=== PATIENT | female | born 1980 | race Caucasian/White ===

== ENCOUNTER 2016-04-20 22:00 | Emergency (ER) | payer OTHER ==
[~2016-04-20 22:00] MED LIST: KLON0.5T; SOMA350T; VICO5TAB
[2016-04-20] MEDS ORDERED: dexameTHASONE 20 MG/5 ML VIAL (J1100) As Ordered ONE (22:46)
[2016-04-20] MEDS ORDERED: UNASYN 1.5 GM VIAL As Ordered ONE (22:46)
[2016-04-20] MEDS ORDERED: diphenhydrAMINE INJ 50MG/ML VIAL (J1200) As Ordered ONE (22:46)
--- NOTE | 2016-04-20 23:56 | EDDOCDS ---
Nurse's Notes [facility] Name: Nayla Doe Age: 36 yrs Sex: Female : 1980 Arrival Date: 04/20/2016 Time: 22:00 Bed 14 Private MD: Anaid Diagnosis: Bitten by cat;Allergy, unspecified Presentation: 04/20 22:09 Presenting complaint: Patient states: Bit by a cat 2 days ago on right thumb and jo3 knuckle. Swelling became significant and so pt squeezed thumb to try and relieve some of the pressure. Approximately 20 minutes later, pt became red and itchy all over. Onset: The symptoms/episode began/occurred acutely, 1 hour(s) ago. This patient has not experienced a previous allergic reaction. Anaphylaxis evaluation, the patient reports or I have noted the following symptoms which indicate a significant risk of anaphylaxis: urticaria. Adult Sepsis Screening: Adult Sepsis Screening: Patient's respiratory rate is less than 22. Systolic blood pressure is greater than 100. Patient has a qSOFA score of 0- Negative Sepsis Screen. Suicide/Homicide risk assessment- the patient denies having any suicidal and/or homicidal ideations and does not present with any other emotional, behavioral or mental health complaints. Status: The patient is a dependent. Transition of care: patient was not received from another setting of care. 22:09 Method Of Arrival: Walkin/Carried/Asstd jo3 22:09 Acuity: LISETH Level 3 jo3 Triage Assessment: 22:13 General: Appears uncomfortable, Behavior is appropriate for age, cooperative, pleasant. jo3 HIV screening NA for this visit Offered previously. Neurological: Level of Consciousness is awake, alert, Oriented to person, place, time. Respiratory: Airway is patent Respiratory effort is even, unlabored, Reports no respiratory complaints. Derm: Skin Skin is dry, Skin is red. 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 Antihistamine oral oral Unknown (Last dose: 04/20/2016 21:15) - PMHx: none; - PSHx: Cholecystectomy; ; Hysterectomy; Breast Reduction; - Social history: Smoking status: Patient states former smoker of tobacco. No barriers to communication noted, The patient speaks fluent Greenlandic, Speaks appropriately for age. - Family history: Not pertinent. - : The pt / caregiver states he / she is not on anticoagulants. Home medication list is obtained from the patient. - Exposure Risk Screening:: None identified. Screenin:00 Screening information is obtained from the patient. Fall risk: No risks identified. tm5 Assistance ADL's: requires no assistance with activities of daily living. Abuse/DV Screen: The patient / caregiver reports he/she is: not in a situation that causes fear, pain or injury. Nutritional screening: No deficits noted. Advance Directives: There is no active DNR order. home support is adequate. Assessment: 23:00 General: Appears in no apparent distress, Behavior is appropriate for age, cooperative. tm5 Pain: Denies pain. Neurological: Level of Consciousness is awake, alert, Oriented to person, place, time. Respiratory: Airway is patent Respiratory effort is even, unlabored, Breath sounds are clear bilaterally. Derm: Skin is pink, warm & dry. Injury Description: Abrasion Puncture sustained to left hand is superficial, was sustained 1 day ago. 23:53 Reassessment: Patient appears in no apparent distress at this time. Patient states tm5 feeling better. Patient states symptoms have improved. Vital Signs: 22:02 BP 161 / 78; Pulse 110; Resp 18; Temp 99.2; Pulse Ox 99% ; Weight 95.25 kg; Height 6 jlm ft. 0 in. (182.88 cm); 23:53 BP 148 / 72; Pulse 100; Resp 20; Temp 98.1(O); Pulse Ox 99% on R/A; Pain 0/10; tm5 22:02 Body Mass Index 28.48 (95.25 kg, 182.88 cm) [facility] Vitals: 22:02 Log In Time: April 20, 2016 at 22:02. [facility] 22:03 RN notified that patient meets Red Flag criteria. [facility] ED Course: 22:02 Patient visited by Clair Ware Unit Clerk. [facility] 22:02 Anaid is Private Physician. [facility] 22:02 Patient moved to Waiting [facility] 22:12 Triage Initiated jo3 22:14 Luzma Aranda,RN is Primary Nurse. mb9 22:14 Olivier Gamble DO is Attending Physician. cs11 22:14 Patient moved to 14 mb9 22:15 Patient visited by Olivier Gamble DO. cs11 22:58 Patient visited by Karely Dowling RN. tm5 22:59 Inserted saline lock: 20 gauge in left hand The patient tolerated the procedure well. tm5 23:02 [facility] Payment Agreement was scanned into [employer] and attached to record. kf3 23:03 Primary Nurse role handed off by Luzma Aranda,GRETCHEN jb5 23:11 Patient visited by Karely Dowling RN. tm5 23:14 [facility]. cs11 23:53 Patient visited by Karely Dowling RN. tm5 23:53 The patient / caregiver is instructed regarding the plan of care and ED course. tm5 23:53 Discontinued lock intact, bleeding controlled, pressure dressing applied, No tm5 redness/swelling at site. No procedures done that require assistance. Administered Medications: 22:59 Drug: diphenhydrAMINE 12.5 mg [diphenhydramine 50 mg/mL injection solution (0.25 mL)] tm5 Route: IVP; Site: left hand; 23:26 Follow up: Response: No Adverse Reaction tm5 22:59 Drug: Dexamethasone 10 mg [dexamethasone 4 mg/mL injection solution] Route: IV; Rate: tm5 bolus; Site: left hand; 23:26 Follow up: Response: No Adverse Reaction tm5 22:59 Drug: Ampicillin-Sulbactam Sodium 1.5 grams [ampicillin-sulbactam 1.5 gram solution for tm5 injection] Route: IVPB; Infused Over: 30 mins; Site: left hand; Order Results: There are currently no results for this order. Outcome: 23:21 Discharge ordered by Provider. cs11 23:53 Discharge Assessment: Patient awake, alert and oriented x 3. No cognitive and/or tm5 functional deficits noted. Patient verbalized understanding of disposition instructions. patient administered narcotics - no. The following High Risk Discharge criteria are identified: None. Discharged to home ambulatory, with significant other. Condition: good Condition: stable Condition: improved. Discharge instructions given to patient, Instructed on discharge instructions, follow up and referral plans. medication usage, Demonstrated understanding of instructions, medications, Pt was receptive of discharge instructions/ teaching. Prescriptions given X 1. No special radiology studies were completed. Property :Personal belongings accompany Pt. 23:55 Patient left the ED. tm5 Signatures: Jaja Way, COMMERCIAL LENDING ASSISTANT COMMERCIAL LENDING ASSISTANT jb5 Luzma Portillo,RN RN jo3 Sha Navarrete, Reg Reg kf3 Olivier Gamble, DO cs11 Clair Ware, Railroad Detective Unit m Salo Santana RN RN mb9 Karely Dowling,RN RN tm5 Corrections: (The following items were deleted from the chart) 22:14 22:09 Acuity: LISETH Level 4 jo3 jo3 MTDD
--- NOTE | 2016-04-20 23:56 | EDDOCDS ---
Physician Documentation [facility] Name: Nayla Doe Age: 36 yrs Sex: Female : 1980 Arrival Date: 04/20/2016 Time: 22:00 Bed 14 Private MD: Anaid Disposition: 04/20/16 23:21 Discharged to Home/Self Care. Impression: Bitten by cat, Allergy, unspecified. - Condition is Stable. - Prescriptions for Augmentin 500- 125 mg Oral Tablet - take 1 tablet by ORAL route every 8 hours for 10 days; 30 tablet. - Medication Reconciliation, Local Pharmacy Hours form. - Follow up: Ken Trimble [facility]; When: 1 - 2 days; Reason: Recheck today's complaints, Continuance of care. - Problem is new. - Symptoms have improved. Historical: - Allergies: Albuterol; tomatoes; - Home Meds: 1. Antihistamine oral oral Unknown (Last dose: 04/20/2016 21:15) - PMHx: none; - PSHx: Cholecystectomy; ; Hysterectomy; Breast Reduction; - Social history: Smoking status: Patient states former smoker of tobacco. No barriers to communication noted, The patient speaks fluent Macanese, Speaks appropriately for age. - Family history: Not pertinent. - : The pt / caregiver states he / she is not on anticoagulants. Home medication list is obtained from the patient. - Exposure Risk Screening:: None identified. 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 0 in. (182.88 cm); 23:53 BP 148 / 72; Pulse 100; Resp 20; Temp 98.1(O); Pulse Ox 99% on R/A; Pain 0/10; tm5 22:02 Body Mass Index 28.48 (95.25 kg, 182.88 cm) jlm MDM: 22:30 IV Saline Lock ordered. cs11 22:30 diphenhydrAMINE 12.5 mg IVP once ordered. cs11 22:30 Dexamethasone 10 mg IV at bolus once ordered. cs11 22:30 Ampicillin-Sulbactam Sodium 1.5 grams IVPB once over 30 mins; dilute in 50mL of NS or cs11 D5W ordered. 23:01 Financial registration complete. kf3 23:02 [facility] Payment Agreement was scanned into [employer] and attached to record. kf3 Administered Medications: 22:59 Drug: diphenhydrAMINE 12.5 mg [diphenhydramine 50 mg/mL injection solution (0.25 mL)] tm5 Route: IVP; Site: left hand; 23:26 Follow up: Response: No Adverse Reaction tm5 22:59 Drug: Dexamethasone 10 mg [dexamethasone 4 mg/mL injection solution] Route: IV; Rate: tm5 bolus; Site: left hand; 23:26 Follow up: Response: No Adverse Reaction tm5 22:59 Drug: Ampicillin-Sulbactam Sodium 1.5 grams [ampicillin-sulbactam 1.5 gram solution for tm5 injection] Route: IVPB; Infused Over: 30 mins; Site: left hand; Signatures: Luzma PortilloRN RN jo3 Sha Navarrete, Reg Reg kf3 Olivier Gamble DO DO cs11 Karely Dowling RN RN tm5 The chart was reviewed and I authenticate all verbal orders and agree with the evaluation and treatment provided.Attachments: 23:02 [facility] Payment Agreement kf3 MTDD
--- NOTE | 2016-04-23 00:56 | EDDOCDS ---
Physician Documentation [facility] Name: Nayla Doe Age: 36 yrs Sex: Female : 1980 Arrival Date: 04/20/2016 Time: 22:00 Bed 14 Private MD: Anaid Disposition: 04/20/16 23:21 Discharged to Home/Self Care. Impression: Bitten by cat, Allergy, unspecified. - Condition is Stable. - Prescriptions for Augmentin 500- 125 mg Oral Tablet - take 1 tablet by ORAL route every 8 hours for 10 days; 30 tablet. - Medication Reconciliation, Local Pharmacy Hours form. - Follow up: Ken Trimble [facility]; When: 1 - 2 days; Reason: Recheck today's complaints, Continuance of care. - Problem is new. - Symptoms have improved. Historical: - Allergies: Albuterol; tomatoes; - Home Meds: 1. Antihistamine oral oral Unknown (Last dose: 04/20/2016 21:15) - PMHx: none; - PSHx: Cholecystectomy; ; Hysterectomy; Breast Reduction; - Social history: Smoking status: Patient states former smoker of tobacco. No barriers to communication noted, The patient speaks fluent Cuban, Speaks appropriately for age. - Family history: Not pertinent. - : The pt / caregiver states he / she is not on anticoagulants. Home medication list is obtained from the patient. - Exposure Risk Screening:: None identified. 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 0 in. (182.88 cm); 23:53 BP 148 / 72; Pulse 100; Resp 20; Temp 98.1(O); Pulse Ox 99% on R/A; Pain 0/10; tm5 22:02 Body Mass Index 28.48 (95.25 kg, 182.88 cm) jlm MDM: 22:30 IV Saline Lock ordered. cs11 22:30 diphenhydrAMINE 12.5 mg IVP once ordered. cs11 22:30 Dexamethasone 10 mg IV at bolus once ordered. cs11 22:30 Ampicillin-Sulbactam Sodium 1.5 grams IVPB once over 30 mins; dilute in 50mL of NS or cs11 D5W ordered. 23:01 Financial registration complete. kf3 : [facility] Payment Agreement was scanned into [employer] and attached to record. kf04/21 08:58 T-Sheet-- Draft Copy was scanned into [employer] and attached to record. se Administered Medications: 04/20 22:59 Drug: diphenhydrAMINE 12.5 mg [diphenhydramine 50 mg/mL injection solution (0.25 mL)] tm5 Route: IVP; Site: left hand; 23:26 Follow up: Response: No Adverse Reaction tm5 22:59 Drug: Dexamethasone 10 mg [dexamethasone 4 mg/mL injection solution] Route: IV; Rate: tm5 bolus; Site: left hand; 23:26 Follow up: Response: No Adverse Reaction tm5 22:59 Drug: Ampicillin-Sulbactam Sodium 1.5 grams [ampicillin-sulbactam 1.5 gram solution for tm5 injection] Route: IVPB; Infused Over: 30 mins; Site: left hand; Signatures: Luzma Portillo,RN RN jo3 Sha Navarrete, Reg Reg kf3 Olivier Gamble, DO cs11 Pattie Sanchez Tonya,RN RN tm5 The chart was reviewed and I authenticate all verbal orders and agree with the evaluation and treatment provided.Attachments: : [facility] Payment Agreement kf04/21 08:58 T-Sheet-- Draft Copy [facility] Chart Complete MTDD
--- NOTE | 2016-04-23 00:56 | EDDOCDS ---
Physician Documentation [facility] Name: Nayla Doe Age: 36 yrs Sex: Female : 1980 Arrival Date: 04/20/2016 Time: 22:00 Bed 14 Private MD: Anaid Disposition: 04/20/16 23:21 Discharged to Home/Self Care. Impression: Bitten by cat, Allergy, unspecified. - Condition is Stable. - Prescriptions for Augmentin 500- 125 mg Oral Tablet - take 1 tablet by ORAL route every 8 hours for 10 days; 30 tablet. - Medication Reconciliation, Local Pharmacy Hours form. - Follow up: Ken Trimble [facility]; When: 1 - 2 days; Reason: Recheck today's complaints, Continuance of care. - Problem is new. - Symptoms have improved. Historical: - Allergies: Albuterol; tomatoes; - Home Meds: 1. Antihistamine oral oral Unknown (Last dose: 04/20/2016 21:15) - PMHx: none; - PSHx: Cholecystectomy; ; Hysterectomy; Breast Reduction; - Social history: Smoking status: Patient states former smoker of tobacco. No barriers to communication noted, The patient speaks fluent Barbadian, Speaks appropriately for age. - Family history: Not pertinent. - : The pt / caregiver states he / she is not on anticoagulants. Home medication list is obtained from the patient. - Exposure Risk Screening:: None identified. 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 0 in. (182.88 cm); 23:53 BP 148 / 72; Pulse 100; Resp 20; Temp 98.1(O); Pulse Ox 99% on R/A; Pain 0/10; tm5 22:02 Body Mass Index 28.48 (95.25 kg, 182.88 cm) jlm MDM: 22:30 IV Saline Lock ordered. cs11 22:30 diphenhydrAMINE 12.5 mg IVP once ordered. cs11 22:30 Dexamethasone 10 mg IV at bolus once ordered. cs11 22:30 Ampicillin-Sulbactam Sodium 1.5 grams IVPB once over 30 mins; dilute in 50mL of NS or cs11 D5W ordered. 23:01 Financial registration complete. kf3 : [facility] Payment Agreement was scanned into [employer] and attached to record. kf04/21 08:58 T-Sheet-- Draft Copy was scanned into [employer] and attached to record. se Administered Medications: 04/20 22:59 Drug: diphenhydrAMINE 12.5 mg [diphenhydramine 50 mg/mL injection solution (0.25 mL)] tm5 Route: IVP; Site: left hand; 23:26 Follow up: Response: No Adverse Reaction tm5 22:59 Drug: Dexamethasone 10 mg [dexamethasone 4 mg/mL injection solution] Route: IV; Rate: tm5 bolus; Site: left hand; 23:26 Follow up: Response: No Adverse Reaction tm5 22:59 Drug: Ampicillin-Sulbactam Sodium 1.5 grams [ampicillin-sulbactam 1.5 gram solution for tm5 injection] Route: IVPB; Infused Over: 30 mins; Site: left hand; Signatures: Luzma Portillo,RN RN jo3 Sha Navarrete, Reg Reg kf3 Olivier Gamble, DO cs11 Pattie Sanchez Tonya,RN RN tm5 The chart was reviewed and I authenticate all verbal orders and agree with the evaluation and treatment provided.Attachments: : [facility] Payment Agreement kf04/21 08:58 T-Sheet-- Draft Copy [facility] Chart Complete MTDD
--- NOTE | 2016-04-23 00:56 | EDDOCDS ---
Nurse's Notes [facility] Name: Nayla Doe Age: 36 yrs Sex: Female : 1980 Arrival Date: 04/20/2016 Time: 22:00 Bed 14 Private MD: Anaid Diagnosis: Bitten by cat;Allergy, unspecified Presentation: 04/20 22:09 Presenting complaint: Patient states: Bit by a cat 2 days ago on right thumb and jo3 knuckle. Swelling became significant and so pt squeezed thumb to try and relieve some of the pressure. Approximately 20 minutes later, pt became red and itchy all over. Onset: The symptoms/episode began/occurred acutely, 1 hour(s) ago. This patient has not experienced a previous allergic reaction. Anaphylaxis evaluation, the patient reports or I have noted the following symptoms which indicate a significant risk of anaphylaxis: urticaria. Adult Sepsis Screening: Adult Sepsis Screening: Patient's respiratory rate is less than 22. Systolic blood pressure is greater than 100. Patient has a qSOFA score of 0- Negative Sepsis Screen. Suicide/Homicide risk assessment- the patient denies having any suicidal and/or homicidal ideations and does not present with any other emotional, behavioral or mental health complaints. Status: The patient is a dependent. Transition of care: patient was not received from another setting of care. 22:09 Method Of Arrival: Walkin/Carried/Asstd jo3 22:09 Acuity: LISETH Level 3 jo3 Triage Assessment: 22:13 General: Appears uncomfortable, Behavior is appropriate for age, cooperative, pleasant. jo3 HIV screening NA for this visit Offered previously. Neurological: Level of Consciousness is awake, alert, Oriented to person, place, time. Respiratory: Airway is patent Respiratory effort is even, unlabored, Reports no respiratory complaints. Derm: Skin Skin is dry, Skin is red. 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 Antihistamine oral oral Unknown (Last dose: 04/20/2016 21:15) - PMHx: none; - PSHx: Cholecystectomy; ; Hysterectomy; Breast Reduction; - Social history: Smoking status: Patient states former smoker of tobacco. No barriers to communication noted, The patient speaks fluent Bengali, Speaks appropriately for age. - Family history: Not pertinent. - : The pt / caregiver states he / she is not on anticoagulants. Home medication list is obtained from the patient. - Exposure Risk Screening:: None identified. Screenin:00 Screening information is obtained from the patient. Fall risk: No risks identified. tm5 Assistance ADL's: requires no assistance with activities of daily living. Abuse/DV Screen: The patient / caregiver reports he/she is: not in a situation that causes fear, pain or injury. Nutritional screening: No deficits noted. Advance Directives: There is no active DNR order. home support is adequate. Assessment: 23:00 General: Appears in no apparent distress, Behavior is appropriate for age, cooperative. tm5 Pain: Denies pain. Neurological: Level of Consciousness is awake, alert, Oriented to person, place, time. Respiratory: Airway is patent Respiratory effort is even, unlabored, Breath sounds are clear bilaterally. Derm: Skin is pink, warm & dry. Injury Description: Abrasion Puncture sustained to left hand is superficial, was sustained 1 day ago. 23:53 Reassessment: Patient appears in no apparent distress at this time. Patient states tm5 feeling better. Patient states symptoms have improved. Vital Signs: 22:02 BP 161 / 78; Pulse 110; Resp 18; Temp 99.2; Pulse Ox 99% ; Weight 95.25 kg; Height 6 jlm ft. 0 in. (182.88 cm); 23:53 BP 148 / 72; Pulse 100; Resp 20; Temp 98.1(O); Pulse Ox 99% on R/A; Pain 0/10; tm5 22:02 Body Mass Index 28.48 (95.25 kg, 182.88 cm) [facility] Vitals: 22:02 Log In Time: April 20, 2016 at 22:02. [facility] 22:03 RN notified that patient meets Red Flag criteria. [facility] ED Course: 22:02 Patient visited by Clair Ware Unit Clerk. [facility] 22:02 Anaid is Private Physician. [facility] 22:02 Patient moved to Waiting [facility] 22:12 Triage Initiated jo3 22:14 Luzma Aranda,RN is Primary Nurse. mb9 22:14 Olivier Gamble DO is Attending Physician. cs11 22:14 Patient moved to 14 mb9 22:15 Patient visited by Olivier Gamble DO. cs11 22:58 Patient visited by Karely Dowling,GRETCHEN. tm5 22:59 Inserted saline lock: 20 gauge in left hand The patient tolerated the procedure well. tm5 23:02 [facility] Payment Agreement was scanned into [employer] and attached to record. kf3 23:03 Primary Nurse role handed off by Luzma Aranda,GRETCHEN jb5 23:11 Patient visited by Karely Dowling RN. tm5 23:14 [facility]. cs11 23:53 Patient visited by Karely Dowling RN. tm5 23:53 The patient / caregiver is instructed regarding the plan of care and ED course. tm5 23:53 Discontinued lock intact, bleeding controlled, pressure dressing applied, No tm5 redness/swelling at site. No procedures done that require assistance. 04/21 08:58 T-Sheet-- Draft Copy was scanned into Fin[employer] and attached to record. [facility] Administered Medications: 04/20 22:59 Drug: diphenhydrAMINE 12.5 mg [diphenhydramine 50 mg/mL injection solution (0.25 mL)] tm5 Route: IVP; Site: left hand; 23:26 Follow up: Response: No Adverse Reaction tm5 22:59 Drug: Dexamethasone 10 mg [dexamethasone 4 mg/mL injection solution] Route: IV; Rate: tm5 bolus; Site: left hand; 23:26 Follow up: Response: No Adverse Reaction tm5 22:59 Drug: Ampicillin-Sulbactam Sodium 1.5 grams [ampicillin-sulbactam 1.5 gram solution for tm5 injection] Route: IVPB; Infused Over: 30 mins; Site: left hand; Order Results: There are currently no results for this order. Outcome: 23:21 Discharge ordered by Provider. cs11 23:53 Discharge Assessment: Patient awake, alert and oriented x 3. No cognitive and/or tm5 functional deficits noted. Patient verbalized understanding of disposition instructions. patient administered narcotics - no. The following High Risk Discharge criteria are identified: None. Discharged to home ambulatory, with significant other. Condition: good Condition: stable Condition: improved. Discharge instructions given to patient, Instructed on discharge instructions, follow up and referral plans. medication usage, Demonstrated understanding of instructions, medications, Pt was receptive of discharge instructions/ teaching. Prescriptions given X 1. No special radiology studies were completed. Property :Personal belongings accompany Pt. 23:55 Patient left the ED. tm5 Signatures: Jaja Way, ADAM SURFACE WATER TECHNICIAN jb5 Luzma Portillo,RN RN jo3 Sha Navarrete, Reg Reg kf3 Olivier Gamble, DO cs11 Clair Ware, Recyclable Materials Collector Unit [facility] Salo SantanaRN RN 9 Pattie Sanchez Tonya, RN RN tm5 Corrections: (The following items were deleted from the chart) 22:14 22:09 Acuity: LISETH Level 4 jo3 jo3 Chart Complete MTDD
== END 2016-04-20 23:55 | disposition home or self-care (01) ==
LOC: M ED 22:00
DX: S61.451A Open bite of right hand, initial encounter (principal); W55.01XA Bitten by cat, initial encounter; Y92.89 Other specified places as the place of occurrence of the external cause; Y93.89 Activity, other specified; Y99.8 Other external cause status; J30.81 Allergic rhinitis due to animal (cat) (dog) hair and dander; Z88.8 Allergy status to other drugs, medicaments and biological substances; Z91.018 Allergy to other foods; Z87.891 Personal history of nicotine dependence
CPT/HCPCS: 96374; 96375; 99283; J1100; J1200

== ENCOUNTER → 2016-07-17 | Outpatient (CLI) | payer OTHER ==
[2016-07-17 12:42] LABS: BASO # 0.1 K/mm3 (0.0-0.2); BASO % 0.9 % (0.0-1.0); EOS # 0.2 K/mm3 (0.0-0.50); EOS % 2.3 % (0.0-3.0); LARGE UNSTAINED CELL # 0.2 K/mm3 (0.0-0.4); LARGE UNSTAINED CELL % 2.4 % (0.0-4.0); LYMPH % 27.6 % (24.0-44.0); MEAN CORPUSCULAR HEMOGLOBIN 32.6 pg (27.0-33.0); MEAN CORPUSCULAR HGB CONC 34.2 g/dl (32.0-36.5); MEAN CORPUSCULAR VOLUME 95.4 fl (80.0-96.0); MONO # 0.4 K/mm3 (0.0-0.8); MONO % 5.6 % (0.0-5.0); NEUTROPHILS # 4.5 K/mm3 (1.8-7.7); NEUTROPHILS % 61.3 % (36.0-66.0); PLATELET COUNT, AUTOMATED 255 k/mm3 (150-450); RED CELL DISTRIBUTION WIDTH 12.3 % (11.5-14.5); WHITE BLOOD COUNT 7.3 K/mm3 (4.0-10.0)
[2016-07-17 13:10] LABS: ALBUMIN 3.9 GM/DL (3.2-5.2); ALBUMIN/GLOBULIN RATIO 1.34 (1.00-1.93); ALKALINE PHOSPHATASE 46 U/L (45-117); ALT/SGPT 30 U/L (12-78); ANION GAP 6 MEQ/L (8-16); AST/SGOT 14 U/L (15-37); BILIRUBIN,TOTAL 0.4 MG/DL (0.2-1.0); BLOOD UREA NITROGEN 10 MG/DL (7-18); CALCIUM LEVEL 8.4 MG/DL (8.5-10.1); CARBON DIOXIDE LEVEL 28 MEQ/L (21-32); CHLORIDE LEVEL 106 MEQ/L (98-107); CREATININE FOR GFR 0.77 MG/DL (0.55-1.02); GLOMERULAR FILTRATION RATE > 60.0 (>60); GLUCOSE, FASTING 87 MG/DL (70-105); SODIUM LEVEL 140 MEQ/L (136-145); TOTAL PROTEIN 6.8 GM/DL (6.4-8.2)
== END ==
LOC: M LAB 12:18
PROVIDERS: ATTEND Internal Medicine Gastroenterology
DX: R12 Heartburn (principal); R19.7 Diarrhea, unspecified

== ENCOUNTER → 2016-07-25 | Outpatient (CLI) | payer OTHER ==
[~2016-07-25] MED LIST changes: +MULT1TAB8 PO
--- NOTE | 2016-07-25 10:40 | REP ---
NUCLEAR GASTRIC EMPTYING SCAN: Following the oral administration of 1.04 millicuries technetium 99m sulfur colloid in two scrambled eggs in 6 ounces of water. Multiple images of the upper abdomen are performed in the anterior and posterior projections for 90 minutes. The gastric activity is measured. The gastric emptying time is calculated. At the end of 90 minutes 41% of the ingested activity has emptied from the stomach. T-1/2 is calculated to be 112 minutes. The normal t-1/2 is 90 minutes and therefore, gastric emptying is slightly delayed. IMPRESSION: Slightly delayed gastric emptying. Signed by Martell Henley MD 07/26/2016 07:03 P
== END ==
LOC: M RAD 08:19
PROVIDERS: ATTEND Internal Medicine Gastroenterology
DX: K31.84 Gastroparesis (principal)

== ENCOUNTER → 2016-07-30 | Outpatient (CLI) | payer OTHER ==
[~2016-07-30] VITALS: Ht 182.9 cm; Wt 97.5 kg
[~2016-07-30] MED LIST changes: +LIDOCAINE 2% INJ 100 MG/5 ML SDV (FOR ANES.) As Ordered ONE; +NS 1,000 ML IV ONE; +PROPOFOL 200 MG/20 ML VIAL As Ordered ONE
--- NOTE | 2016-07-30 15:15 | ROOR ---
Patient Name: Nayla Doe Procedure Date: 07/30/2016 3:05 PM Date of : 1980 Age: 36 Room: [facility] Gender: Female Note Status: Finalized Procedure: Upper GI endoscopy Indications: Heartburn, Gastroparesis, Nausea Providers: Brock HURT MD Referring MD: Gabriella ORTIZ MD Requesting Provider: Medicines: Monitored Anesthesia Care Complications: No immediate complications. Procedure: Pre-Anesthesia Assessment: - The heart rate, respiratory rate, oxygen saturations, blood pressure, adequacy of pulmonary ventilation, and response to care were monitored throughout the procedure. The Endoscope was introduced through the mouth, and advanced to the second part of duodenum. The upper GI endoscopy was accomplished without difficulty. The patient tolerated the procedure well. Findings: The esophagus was normal. The stomach was normal. The examined duodenum was normal. Bilious fluid was found in the entire examined stomach. Impression: - Normal esophagus. - Normal stomach. - Normal examined duodenum. - Bilious gastric fluid. - No specimens collected. Recommendation: - Observe patient's clinical course. - Use sucralfate tablets 1 gram 3-4 times a day. Script sent to your pharmacy - Gastroparesis diet: - Eat smaller, more frequent meals throughout the day. - Low fat diet. - Liquid/soft foods are tolerated better than solid foods. - Low fiber/well cooked vegetables are tolerated better than high fiber/fibrous foods/raw vegetables. - Avoid medications that inhibit gastric/intestinal motility such as narcotic medications. Brock Hurt MD Brock HURT MD 07/30/2016 3:15:00 PM This report has been signed electronically. Number of Addenda: 0 Note Initiated On: 07/30/2016 3:05 PM Estimated Blood Loss: Estimated blood loss: none.
--- NOTE | 2016-07-30 15:33 | ROOR ---
Patient Name: Nayla Doe Procedure Date: 07/30/2016 3:06 PM Date of : 1980 Age: 36 Room: [facility] Gender: Female Note Status: Finalized Procedure: Colonoscopy Indications: Irritable bowel syndrome with diarrhea Providers: Brock HURT MD Referring MD: Gabriella ORTIZ MD Requesting Provider: Medicines: Monitored Anesthesia Care Complications: No immediate complications. Procedure: Pre-Anesthesia Assessment: - The heart rate, respiratory rate, oxygen saturations, blood pressure, adequacy of pulmonary ventilation, and response to care were monitored throughout the procedure. The Colonoscope was introduced through the anus and advanced to 5 cm into the ileum. The colonoscopy was performed without difficulty. The patient tolerated the procedure well. The quality of the bowel preparation was good. Findings: The perianal and digital rectal examinations were normal. A 5 mm polyp was found in the ascending colon. The polyp was sessile. The polyp was removed with a cold snare. Resection and retrieval were complete. The exam was otherwise normal throughout the examined colon. The terminal ileum appeared normal. Biopsies for histology were taken with a cold forceps from the entire colon for evaluation of microscopic colitis. Impression: - One 5 mm polyp in the ascending colon, removed with a cold snare. Resected and retrieved. - The rest of the colon and examined portion of the ileum are normal. - Biopsies were taken with a cold forceps from the entire colon for evaluation of microscopic colitis. - (Irritable Bowel Syndrome/IBS suspected.) Recommendation: - Await pathology results. - Telephone endoscopist for pathology results in 2 weeks. - If the pathology report reveals adenomatous tissue, then repeat the colonoscopy for surveillance in 5 years. - If the pathology report indicates hyperplastic polyp, then repeat colonoscopy at age [age] years old. - Use Levbid 0.375 mg Extended Tabs 1 tab PO BID. - (the script was sent to your pharmacy on file) - Await results of Hyoscyamine. - Consideration may be given to a trial on Amitriptyline 25-50 mg at bedtime. Brock Hurt MD Brock HURT MD 07/30/2016 3:33:15 PM This report has been signed electronically. Number of Addenda: 0 Note Initiated On: 07/30/2016 3:06 PM Estimated Blood Loss: Estimated blood loss: none.
[2016-07-30 16:14] VITALS: BP 119/67
== END | disposition home or self-care (01) ==
LOC: M OPP 13:51
PROVIDERS: ATTEND Internal Medicine Gastroenterology
DX: K58.0 Irritable bowel syndrome with diarrhea (principal); K63.5 Polyp of colon; K21.9 Gastro-esophageal reflux disease without esophagitis; K31.84 Gastroparesis; R11.0 Nausea; F33.9 Major depressive disorder, recurrent, unspecified; F41.9 Anxiety disorder, unspecified; M19.90 Unspecified osteoarthritis, unspecified site; Z87.891 Personal history of nicotine dependence; Z91.018 Allergy to other foods; Z88.8 Allergy status to other drugs, medicaments and biological substances

== ENCOUNTER → 2016-09-19 | Outpatient (REF) | payer OTHER ==
[~2016-09-19] MED LIST changes: +CHERSYP3 PO; -LIDOCAINE 2% INJ 100 MG/5 ML SDV (FOR ANES.) As Ordered ONE; -NS 1,000 ML IV ONE; +PRED20TA PO; -PROPOFOL 200 MG/20 ML VIAL As Ordered ONE; +ZITHTAB PO
== END ==
LOC: M LAB REF 16:43
PROVIDERS: ATTEND Physician Assistant
DX: N39.0 Urinary tract infection, site not specified (principal)

== ENCOUNTER 2016-11-15 10:58 | Emergency (ER) | payer OTHER ==
[~2016-11-15] VITALS: Ht 182.9 cm; Wt 100.0 kg
[~2016-11-15 10:58] MED LIST changes: -CHERSYP3 PO; -PRED20TA PO; -ZITHTAB PO
[2016-11-15] MEDS ORDERED: ZITHTAB PO (12:17)
[2016-11-15] MEDS ORDERED: CHERSYP3 PO (12:17)
[2016-11-15] MEDS ORDERED: PRED20TA PO (12:17)
[2016-11-15 12:31] VITALS: BP 128/78
== END 2016-11-15 12:32 | disposition home or self-care (01) ==
LOC: M ED 10:58
DX: J41.0 Simple chronic bronchitis (principal); J06.9 Acute upper respiratory infection, unspecified; Z87.891 Personal history of nicotine dependence

== ENCOUNTER → 2017-01-11 | Outpatient (CLI) | payer OTHER ==
[~2017-01-11] MED LIST changes: +CHERSYP3 PO; +PRED20TA PO; +ZITHTAB PO
--- NOTE | 2017-01-11 19:45 | REP ---
CT CHEST WITHOUT IV CONTRAST: CT chest performed without IV contrast with sagittal and coronal reconstruction images. COMPARISON: 02/02/2008. Lungs are free of infiltrate or other significant parenchymal abnormality. Heart is normal in size. There is no pleural or pericardiac effusion. There is no thoracic aortic aneurysm. No adenopathy is seen in the chest. Visualized upper abdominal structures appear grossly unremarkable. Patient has had a prior cholecystectomy. There are mild degenerative changes of the spine without thoracic compression deformity. IMPRESSION: Mild diffuse degenerative changes of the spine. Patient is status-post cholecystectomy. No other significant abnormality identified. Signed by Martell Henley MD 01/11/2017 08:14 P
== END ==
LOC: M RAD 17:34
PROVIDERS: ATTEND Psychiatry & Neurology Neurology
DX: R07.89 Other chest pain (principal); F17.210 Nicotine dependence, cigarettes, uncomplicated

== ENCOUNTER 2019-11-18 11:18 | Emergency (ER) | payer OTHER ==
[~2019-11-18] VITALS: Ht 182.9 cm; Wt 95.6 kg
[~2019-11-18 11:18] MED LIST changes: +ALOE500C PO; +BIOT1TAB PO; +MAGN400C2 PO; +PERC5TAB12 PO; +POTA99TA PO; +TRAM50TA2 PO; +VANI1CRE5 TOP; +VITMTA PO
[2019-11-18] MEDS ORDERED: ACET-683 PO (11:51)
[2019-11-18] MEDS ORDERED: ISOVUE-370 76% 100ML VIAL As Ordered ONE (12:44)
[2019-11-18 12:54] LABS: BASO # 0.1 10^3/uL (0.0-0.2); BASO % 0.9 % (0.0-1.0); EOS # 0.1 10^3/uL (0.0-0.5); EOS % 1.4 % (0.0-3.0); HEMATOCRIT 42.6 % (36.0-47.0); HEMOGLOBIN 14.3 g/dl (12.0-15.5); LYMPH # 1.9 10^3/uL (1.5-5.0); MEAN CORPUSCULAR HEMOGLOBIN 32.1 pg (27.0-33.0); MEAN CORPUSCULAR HGB CONC 33.6 g/dl (32.0-36.5); MEAN CORPUSCULAR VOLUME 95.7 fl (80.0-96.0); MONO # 0.6 10^3/uL (0.0-0.8); NEUTROPHILS # 4.9 10^3/uL (1.5-8.5); NEUTROPHILS % 64.4 % (36.0-66.0); PLATELET COUNT, AUTOMATED 232 10^3/uL (150-450); RED BLOOD COUNT 4.45 10^6/uL (4.00-5.40); WHITE BLOOD COUNT 7.6 10^3/uL (4.0-10.0)
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
[2019-11-18 13:29] LABS: ALBUMIN 3.9 GM/DL (3.2-5.2); BILIRUBIN,DIRECT 0.1 MG/DL (0.0-0.2); BILIRUBIN,TOTAL 0.5 MG/DL (0.2-1.0); TOTAL PROTEIN 7.1 GM/DL (6.4-8.2)
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
[2019-11-18 14:00] VITALS: BP 120/78
== END 2019-11-18 14:01 | disposition home or self-care (01) ==
LOC: M ED 11:18
DX: S16.1XXA Strain of muscle, fascia and tendon at neck level, initial encounter (principal); R10.9 Unspecified abdominal pain; V40.0XXA Car driver injured in collision with pedestrian or animal in nontraffic accident, initial encounter; Y92.9 Unspecified place or not applicable; Y93.9 Activity, unspecified; Y99.9 Unspecified external cause status; Z91.018 Allergy to other foods; Z88.8 Allergy status to other drugs, medicaments and biological substances
CPT/HCPCS: 36415; 70450; 72125; 74177; 80047; 80076; 85025; 86850; 86900; 86901; 99284; Q9967

== ENCOUNTER → 2020-06-08 | Outpatient (REF) | payer OTHER ==
[~2020-06-08] MED LIST changes: +ACET-683 PO
[2020-06-08 15:20] LABS: CHLAMYDIA DNA AMPLIFICATION NEGATIVE (NEGATIVE); GC DNA AMPLIFICATION NEGATIVE (NEGATIVE)
== END ==
LOC: M LAB REF 11:38
PROVIDERS: ATTEND Physician Assistant
DX: N39.0 Urinary tract infection, site not specified (principal)

== ENCOUNTER → 2021-05-12 | Outpatient (CLI) | payer OTHER | LOC: M PLARAD 13:29 | PROVIDERS: ATTEND Physician Assistant | DX: S83.91XD Sprain of unspecified site of right knee, subsequent encounter (principal) ==

== ENCOUNTER → 2023-02-14 | Outpatient (CLI) | payer OTHER ==
[2023-02-14 14:39] LABS: BASO # 0.1 10^3/uL (0.0-0.2); BASO % 1.1 % (0.0-1.0); EOS # 0.2 10^3/uL (0.0-0.5); EOS % 2.2 % (0.0-3.0); HEMATOCRIT 43.6 % (36.0-47.0); HEMOGLOBIN 14.3 g/dl (12.0-15.5); LYMPH # 2.4 10^3/uL (1.5-5.0); MEAN CORPUSCULAR HEMOGLOBIN 30.8 pg (27.0-33.0); MEAN CORPUSCULAR HGB CONC 32.8 g/dl (32.0-36.5); MEAN CORPUSCULAR VOLUME 93.8 fl (80.0-96.0); MONO # 0.6 10^3/uL (0.0-0.8); MONO % 7.6 % (2.0-8.0); NEUTROPHILS # 4.1 10^3/uL (1.5-8.5); NEUTROPHILS % 55.8 % (36.0-66.0); PLATELET COUNT, AUTOMATED 279 10^3/uL (150-450); RED BLOOD COUNT 4.65 10^6/uL (4.00-5.40); WHITE BLOOD COUNT 7.3 10^3/uL (4.0-10.0)
[2023-02-14 14:51] LABS: ERYTHROCYTE SEDIMENTATION RATE 23 mm/hr (0-20)
[2023-02-14 15:03] LABS: C REACTIVE PROTEIN QUANTITATIV < 0.40 MG/DL (<1.0)
[2023-02-15 13:10] LABS: ANTINUCLEAR ANTIBODIES DIRECT Negative (Negative)
== END ==
LOC: M PLALAB 09:36
PROVIDERS: ATTEND Orthopaedic Surgery
DX: R22.41 Localized swelling, mass and lump, right lower limb (principal)

== ENCOUNTER 2023-11-29 12:31 | Emergency (ER) | payer OTHER ==
[~2023-11-29] VITALS: Ht 182.9 cm; Wt 98.8 kg
[~2023-11-29 12:31] MED LIST changes: -DICL75TA PO; -KETO60IN IJ; -METH-1165 PO; -ONDA-282 PO; -SIME1CAP4 PO
[2023-11-29] MEDS ORDERED: ONDA-282 PO ×2 (12:37→14:39)
[2023-11-29] MEDS ORDERED: KETO60IN IJ (12:37)
[2023-11-29] MEDS: MORPHINE 4 MG/ML 1ML VIAL IV ONE (13:18)
[2023-11-29] MEDS: ONDANSETRON 4MG 2ML VIAL IV ONE (13:18)
[2023-11-29 13:20] LABS: BASO # 0.1 10^3/uL (0.0-0.2); BASO % 0.9 % (0.0-1.0); EOS # 0.1 10^3/uL (0.0-0.5); EOS % 0.8 % (0.0-3.0); HEMATOCRIT 41.4 % (36.0-47.0); HEMOGLOBIN 14.2 g/dl (12.0-15.5); LYMPH # 2.2 10^3/uL (1.5-5.0); LYMPH % 22.9 % (24.0-44.0); MEAN CORPUSCULAR HGB CONC 34.3 g/dl (32.0-36.5); MEAN CORPUSCULAR VOLUME 93.2 fl (80.0-96.0); MONO # 0.7 10^3/uL (0.0-0.8); MONO % 7.5 % (2.0-8.0); NEUTROPHILS # 6.6 10^3/uL (1.5-8.5); NEUTROPHILS % 67.5 % (36.0-66.0); PLATELET COUNT, AUTOMATED 251 10^3/uL (150-450); RED BLOOD COUNT 4.44 10^6/uL (4.00-5.40); WHITE BLOOD COUNT 9.8 10^3/uL (4.0-10.0)
[2023-11-29 13:40] LABS: LIPASE 40 U/L (12-53)
[2023-11-29 13:42] LABS: ALKALINE PHOSPHATASE 38 U/L (46-116); ALT/SGPT 18 U/L (7.0-40); AST/SGOT 16 U/L (<34); BILIRUBIN,DIRECT < 0.1 MG/DL (<0.4); BILIRUBIN,TOTAL 0.3 MG/DL (0.3-1.2); TOTAL PROTEIN 7.1 G/DL (5.7-8.2)
[2023-11-29] MEDS ORDERED: METH-1165 PO (14:39)
[2023-11-29] MEDS ORDERED: DICL75TA PO (14:39)
[2023-11-29 14:45] VITALS: BP 123/72; TEMP 98.4; O2SAT 98
[2023-11-29] MEDS ORDERED: SIME1CAP4 PO (14:57)
== END 2023-11-29 14:52 | disposition home or self-care (01) ==
LOC: M ED 12:31
DX: R10.9 Unspecified abdominal pain (principal); N20.0 Calculus of kidney; D35.01 Benign neoplasm of right adrenal gland; F41.9 Anxiety disorder, unspecified; F32.A Depression, unspecified; Z88.8 Allergy status to other drugs, medicaments and biological substances; Z91.018 Allergy to other foods
CPT/HCPCS: 74176; 80047; 80076; 81001; 83690; 85025; 96374; 96375; 99284; J2405

== ENCOUNTER → 2023-11-29 | Outpatient (CLI) | payer OTHER ==
[~2023-11-29] MED LIST changes: +DICL75TA PO; +KETO60IN IJ; +METH-1165 PO; +ONDA-282 PO; +SIME1CAP4 PO
== END ==
LOC: M WHC 10:06
PROVIDERS: ATTEND Physician Assistant
DX: N20.0 Calculus of kidney (principal); R10.31 Right lower quadrant pain; R35.0 Frequency of micturition

== ENCOUNTER → 2023-12-01 | Outpatient (REF) | payer OTHER ==
[~2023-12-01] MED LIST changes: +DICL75TA PO; +KETO60IN IJ; +METH-1165 PO; +ONDA-282 PO; +SIME1CAP4 PO
== END ==
LOC: M LAB REF 09:58
PROVIDERS: ATTEND Physician Assistant Medical
DX: R19.7 Diarrhea, unspecified (principal)

== ENCOUNTER → 2024-04-05 | Outpatient (CLI) | payer OTHER ==
[2024-04-05 14:47] LABS: BASO # 0.1 10^3/uL (0.0-0.2); BASO % 1.2 % (0.0-1.0); EOS # 0.2 10^3/uL (0.0-0.5); EOS % 1.7 % (0.0-3.0); HEMATOCRIT 41.2 % (36.0-47.0); HEMOGLOBIN 13.9 g/dl (12.0-15.5); LYMPH # 3.1 10^3/uL (1.5-5.0); MEAN CORPUSCULAR HEMOGLOBIN 31.7 pg (27.0-33.0); MEAN CORPUSCULAR HGB CONC 33.7 g/dl (32.0-36.5); MEAN CORPUSCULAR VOLUME 94.1 fl (80.0-96.0); MONO # 0.8 10^3/uL (0.0-0.8); MONO % 7.7 % (2.0-8.0); PLATELET COUNT, AUTOMATED 253 10^3/uL (150-450); RED BLOOD COUNT 4.38 10^6/uL (4.00-5.40); WHITE BLOOD COUNT 10.2 10^3/uL (4.0-10.0)
[2024-04-05 15:13] LABS: ALBUMIN 3.8 G/DL (3.2-5.2); ALKALINE PHOSPHATASE 41 U/L (35-104); ALT/SGPT 17 U/L (7.0-40); AST/SGOT 12 U/L (<34); BILIRUBIN,TOTAL 0.2 MG/DL (0.3-1.2); BLOOD UREA NITROGEN 11 MG/DL (9-23); CALCIUM LEVEL 8.9 MG/DL (8.5-10.1); CARBON DIOXIDE LEVEL 27 MMOL/L (20-31); CHLORIDE LEVEL 107 MMOL/L (98-107); CREATININE FOR GFR 0.63 MG/DL (0.55-1.30); GLOMERULAR FILTRATION RATE > 60.0 (>58); GLUCOSE, FASTING 103 MG/DL (60-100); POTASSIUM SERUM 4.1 MMOL/L (3.5-5.1); SODIUM LEVEL 141 MMOL/L (136-145); TOTAL PROTEIN 6.8 G/DL (5.7-8.2)
[2024-04-05 15:15] LABS: FREE THYROXINE INDEX 1.8 % (1.3-4.8); T UPTAKE 29.8 % (22.5-37.0); THYROID STIMULATING HORMONE 1.509 uIU/ML (0.55-4.78); THYROXINE (T4) 6.2 UG/DL (4.5-10.9)
== END ==
LOC: M LAB 13:32
PROVIDERS: ATTEND Student in an Organized Health Care Education/Training Program
DX: R22.1 Localized swelling, mass and lump, neck (principal)

== ENCOUNTER → 2024-04-06 | Outpatient (CLI) | payer OTHER | LOC: M RAD 09:47 | PROVIDERS: ATTEND Student in an Organized Health Care Education/Training Program | DX: R22.1 Localized swelling, mass and lump, neck (principal) ==

== ENCOUNTER → 2024-04-06 | Outpatient (REF) | LOC: M EMP 10:44 | PROVIDERS: ATTEND Family Medicine | DX: Z11.52 Encounter for screening for COVID-19 (principal) ==

== ENCOUNTER 2024-06-19 05:09 | Emergency (ER) | payer OTHER ==
[~2024-06-19] VITALS: Ht 182.9 cm; Wt 100.0 kg
[2024-06-19 05:13] VITALS: BP 142/85; TEMP 97.5; O2SAT 99
[2024-06-19] MEDS: KETOROLAC 60MG 2ML VIAL IM ONE (05:47)
== END 2024-06-19 08:02 | disposition home or self-care (01) ==
LOC: M ED 05:09
DX: S93.402A Sprain of unspecified ligament of left ankle, initial encounter (principal); W17.89XA Other fall from one level to another, initial encounter; Y92.009 Unspecified place in unspecified non-institutional (private) residence as the place of occurrence of the external cause; Y93.9 Activity, unspecified; Y99.9 Unspecified external cause status; F41.9 Anxiety disorder, unspecified; F32.A Depression, unspecified; Z87.442 Personal history of urinary calculi; Z88.8 Allergy status to other drugs, medicaments and biological substances; Z91.018 Allergy to other foods
CPT/HCPCS: 73610; 96372; 99283; J1885

== ENCOUNTER → 2024-12-04 | Outpatient (CLI) | payer OTHER ==
[~2024-12-04] MED LIST changes: +ATOR40TA75 PO; +ESTR1DIS5 TOP
[2024-12-04 11:18] LABS: PLATELET COUNT, AUTOMATED 273 10^3/uL (150-450)
[2024-12-04 11:49] LABS: CALCIUM LEVEL 8.9 MG/DL (8.5-10.1); CARBON DIOXIDE LEVEL 23 MMOL/L (20-31); CHLORIDE LEVEL 108 MMOL/L (98-107); CREATININE FOR GFR 0.55 MG/DL (0.55-1.30); GLOMERULAR FILTRATION RATE > 90.0 (>58); POTASSIUM SERUM 5.1 MMOL/L (3.5-5.1); SODIUM LEVEL 142 MMOL/L (136-145)
== END ==
LOC: M RAD 09:46
PROVIDERS: ATTEND Urology
DX: Z01.818 Encounter for other preprocedural examination (principal)

== ENCOUNTER → 2024-12-08 | Outpatient (CLI) | payer OTHER ==
[~2024-12-08] MED LIST changes: +HYDR-3713 PO
== END ==
LOC: M PLAIMG 08:29
PROVIDERS: ATTEND Physician Assistant
DX: N20.0 Calculus of kidney (principal)

== ENCOUNTER 2024-12-10 08:17 | Day surgery (SDC) | payer OTHER ==
[~2024-12-10] VITALS: Ht 182.9 cm; Wt 99.9 kg
[~2024-12-10 08:17] MED LIST changes: -HYDR-3713 PO
[2024-12-10] MEDS ORDERED: dexAMETHasone 4 MG/ML 1 ML VIAL As Ordered ONE (08:49)
[2024-12-10] MEDS ORDERED: MIDAZOLAM INJ 2 MG/2 ML VIAL As Ordered ONE (08:50)
[2024-12-10] MEDS ORDERED: ONDANSETRON 4MG/2ML VIAL As Ordered ONE (08:50)
[2024-12-10] MEDS ORDERED: LIDOCAINE 2% 100 MG/5 ML SDV (FOR ANES.) As Ordered ONE (08:50)
[2024-12-10] MEDS ORDERED: ACETAMINOPHEN 1000MG/100ML IV BAG As Ordered ONE (08:54)
[2024-12-10] MEDS: ceFAZolin SOD 2 GM IV ONCE IV ONE (09:18)
[2024-12-10] MEDS ORDERED: HYDR-3713 PO (09:40)
[2024-12-10 09:45] VITALS: BP 128/69; TEMP 97.3; O2SAT 96
== END 2024-12-10 10:06 | disposition home or self-care (01) ==
LOC: M SDC 08:17
PROVIDERS: ATTEND Urology
DX: N20.0 Calculus of kidney (principal); E78.00 Pure hypercholesterolemia, unspecified; K21.9 Gastro-esophageal reflux disease without esophagitis; Z79.899 Other long term (current) drug therapy; Z90.710 Acquired absence of both cervix and uterus; Z79.3 Long term (current) use of hormonal contraceptives; Z87.891 Personal history of nicotine dependence
CPT/HCPCS: 50590; 74018; J0131; J0688; J1100; J2250; J2405; J3010

== ENCOUNTER → 2025-01-01 | Outpatient (REF) | payer OTHER ==
[~2025-01-01] MED LIST changes: +HYDR-3713 PO
[2025-01-01 18:01] LABS: APPEARANCE, URINE CLOUDY (CLEAR); BACTERIA, URINE AUTO NEGATIVE (NEGATIVE); BILIRUBIN, URINE AUTO NEGATIVE (NEGATIVE); BLOOD, URINE BLOOD NEGATIVE (NEGATIVE); GLUCOSE, URINE (UA) AUTO NEGATIVE (NEGATIVE); KETONE, URINE AUTO TRACE mg/dL (NEGATIVE); LEUKOCYTE ESTERASE, URINE AUTO 1+ (NEGATIVE); MUCUS, URINE SMALL (NEGATIVE); NITRITE, URINE AUTO NEGATIVE (NEGATIVE); PROTEIN, URINE AUTO NEGATIVE (NEGATIVE); RBC, URINE AUTO 0 /HPF (0-3); SPECIFIC GRAVITY URINE AUTO 1.020 (1.002-1.035); SQUAMOUS EPITHELIAL CELL UR AU 22 /HPF (0-6); UROBILINOGEN, URINE AUTO 0.2 mg/dL (0.0-2.0); WBC, URINE AUTO 12 /HPF (0-3)
== END ==
LOC: M SMT 16:44
PROVIDERS: ATTEND Nurse Practitioner Family
DX: N20.0 Calculus of kidney (principal); R82.90 Unspecified abnormal findings in urine

== ENCOUNTER → 2025-01-01 | Outpatient (CLI) | payer OTHER | LOC: M RAD 10:18 | PROVIDERS: ATTEND Urology | DX: Z87.442 Personal history of urinary calculi (principal) ==

== ENCOUNTER → 2025-01-08 | Outpatient (CLI) | payer OTHER | LOC: M PLAIMG 06:35 | PROVIDERS: ATTEND Family Medicine | DX: M19.011 Primary osteoarthritis, right shoulder (principal); M19.012 Primary osteoarthritis, left shoulder; M67.814 Other specified disorders of tendon, left shoulder ==